=== PATIENT | male | born 1940 | race Hispanic/Latino ===

== ENCOUNTER 2022-05-16 16:32 | Emergency (ER) | payer MEDICARE ==
[~2022-05-16] VITALS: Ht 160 cm; Wt 68.0 kg
[2022-05-16] MEDS ORDERED: HYDRALAZINE HCL 20 MG/ML VIAL IV STA (16:51)
[2022-05-16] MEDS ORDERED: ULTRAM 50MG50 MG PO (17:50)
[2022-05-16 17:55] VITALS: BP 220/90
== END 2022-05-16 18:06 | disposition home or self-care (01) ==
LOC: FSED 16:49
DX: M25.511 Pain in right shoulder (principal); R07.89 Other chest pain; I16.0 Hypertensive urgency; I70.0 Atherosclerosis of aorta; I10 Essential (primary) hypertension; E78.5 Hyperlipidemia, unspecified
CPT/HCPCS: 71046; 80053; 82553; 84484; 85025; 93005; 99284; J0360